=== PATIENT | female | born 1950 | race African-American/Black ===

== ENCOUNTER 2017-02-13 08:09 | Day surgery (SDC) | payer OTHER ==
[2017-02-13 08:54] VITALS: BMI 31.7
[2017-02-13] MEDS ORDERED: GABAPENTIN 300 MG CAPSULE (FP) ONE (09:52)
[2017-02-13] MEDS ORDERED: oxyCODONE HCL 10 MG SUSTAINED ACTING TABLET ONE (09:52)
[2017-02-13] MEDS ORDERED: oxyCODONE HCL 10 MG SUSTAINED ACTING TABLET PO ONE (09:56)
[2017-02-13] MEDS ORDERED: LIDOCAINE 1%/EPI 1:100000 (20 ML MULTI DOSE VIAL) ONE (10:11)
[2017-02-13] MEDS ORDERED: BUPIVACAINE HCL/PF 2.5 MG/ML - 30 ML VIAL IJ ONE (10:11)
[2017-02-13] MEDS ORDERED: THROMBIN (BOVINE) 5,000 UNIT VIAL TP ONE ×2 (10:11→12:33)
[2017-02-13] MEDS ORDERED: methylPREDNISolone ACET (DEPO) 40 MG/1 ML VIAL ONE (10:11)
[2017-02-13] MEDS ORDERED: CEFAZOLIN 2 GM/D5W 50 ML IVPB ONE (10:17)
--- NOTE | 2017-02-13 10:23 | HP ---
History & Physical Update - History History: No Change - Physical Physical: No Change - Assessment Assessment: No Change - Plan Plan: No Change (C/o low back pain radiating down her left leg all the way to her ankle. Occassionally it happens to her right leg but only to her knee. This is my first time meeting the patient. I introduced myself and informed her that I will be assissting Dr. Lozano today. She is fine with it.)
[2017-02-13] MEDS ORDERED: MIDAZOLAM HCL 2 MG/2 ML SINGLE DOSE VIAL ONE ×2 (10:46)
[2017-02-13] MEDS ORDERED: BUPIVACAINE HCL/PF 0.5% (5MG/ML) 10 ML VIAL ONE (10:48)
[2017-02-13] MEDS ORDERED: LIDOCAINE 1%/EPI 1:100000 (50 ML MULTI DOSE VIAL) INF ONE (11:15)
[2017-02-13] MEDS ORDERED: ceFAZolin SODIUM 1 GM VIAL ONE (11:28)
[2017-02-13] MEDS ORDERED: ONDANSETRON 4 MG/2 ML VIAL ONE (12:15)
[2017-02-13] MEDS ORDERED: DEXAMETHASONE SOD PHOSPHATE 4 MG/1 ML VIAL ONE (12:16)
[2017-02-13] MEDS ORDERED: methylPREDNISolone ACET (DEPO) 40 MG/1 ML VIAL IM ONE (12:33)
[2017-02-13] MEDS ORDERED: BUPIVACAINE HCL/PF 0.25% (2.5MG/ML) 10 ML VIAL IJ ONE (12:34)
--- NOTE | 2017-02-13 13:01 | OP ---
Operative Note - Note: Operative Date: 02/13/17 Pre-Operative Diagnosis: spinal stenosis with lumbar radiculopathy Operation: Laminectomy L4-S1 Post-Operative Diagnosis: Same as Pre-op Surgeon: Hardy Lozano School Bus Mechanic: Juan Hodge Anesthesiologist/COMMUNICATION TECHNICIAN: Luis Antonio Luna Anesthesia: Spinal Specimens Removed: None. Estimated Blood Loss (mls): 20 Fluid Volume Replaced (mls): 900 Operative Report Dictated: Yes
--- NOTE | 2017-02-13 13:03 | SURG ---
Surgery Pig Breeder Note Pig Breeder: Juan Hodge PA-C Date of Service: 02/13/17 Diagnosis: Spinal stenosis with lumbar radiculopathy Procedure: L4-S1 Laminectomy I was present for the entirety of the operative procedure. For further detail, please refer to operative report. Visit type - Case Type Case Type: Scheduled Admission - New patient This patient is new to me today: Yes Date on this admission: 02/13/17
[2017-02-13] MEDS ORDERED: ACETAMINOPHEN 1000 MG/100 ML VIAL (NON FORMULARY) IVPB ONE ×2 (13:04→13:05)
[2017-02-13] MEDS ORDERED: traMADol HCL 50 MG TABLET PO ONE ×2 (13:04→14:20)
[2017-02-13] MEDS ORDERED: traMADol HCL 50 MG TABLET ONE (13:37)
[2017-02-13] MEDS ORDERED: ONDANSETRON 4 MG/2 ML VIAL IVPUSH PRN (13:43)
[2017-02-13] MEDS ORDERED: oxyCODONE HCL 5 MG TABLET PO PRN (13:43)
[2017-02-13] MEDS ORDERED: PROMETHAZINE HCL 25 MG/1 ML VIAL IVPUSH PRN (13:43)
[2017-02-13] MEDS ORDERED: LACTATED RINGERS SOLUTION 1,000 ML IV SCH (13:45)
[2017-02-13] MEDS ORDERED: GABAPENTIN 300 MG CAPSULE (FP) PO ONE (14:02)
--- NOTE | 2017-02-13 14:02 | OP ---
DATE OF OPERATION: 02/13/2017 PREOPERATIVE DIAGNOSIS: Spinal stenosis, L4-L5, L5-S1. POSTOPERATIVE DIAGNOSIS: Spinal stenosis, L4-L5, L5-S1. PROCEDURE PERFORMED: Laminectomy at L4-L5, L5-S1. SURGEON: Hardy Lozano MD MARINE MACHINIST: SB Michelle ESTIMATED BLOOD LOSS: 50 mL INTRAVENOUS FLUIDS: Per Anesthesia. COMPLICATIONS: There were none. ANESTHESIA: Spinal. DISPOSITION: Patient brought to the PACU in stable condition. INDICATION FOR SURGERY: The patient is a 66-year-old female who has been suffering from pain from her back down her legs. X-rays and MRI were completed, which showed that she had spinal stenosis at L4-L5 and L5-S1. She had gone through an exhaustive course of treatment for this which included medications, physical therapy, as well as injections. Unfortunately, her pain continued to persist despite all this. At this point, risks, benefits, and alternatives were discussed, and the patient consented to surgery. DESCRIPTION OF PROCEDURE: The patient was brought to the operating room by the anesthesia staff. After appropriate patient identification was performed, spinal anesthesia was given. She was able to position herself prone onto the Fish frame with all areas of bony prominences well padded at this time. Two needles were placed into her back to greer off the L4 to S1 segments, and x-ray was taken to confirm that this was correct. The needles were removed, and 10 mL of lidocaine with epinephrine were injected into her back at this time. Her back was prepped and draped in a sterile manner. At this point, a timeout was completed, and an incision was made from the top of L4 down to the bottom of S1. Dissection was carried down to the fascia. Fascia was split open at this time, and appropriate retractors were then placed in. A spinal needle was placed onto the L4 lamina to greer off the L4-L5 level. An x-ray was taken to confirm this as correct. At this point, the needle was removed. The interspinous ligament at L4-L5 and L5-S1 removed. The spinous process at L5 was removed. A bur was used to remove the lamina of L5. A complete decompression was performed such that by the end of the procedure, the L5 and S1 nerve roots appeared to be well decompressed. All bleeding was well controlled at this time. Steroid was placed over the nerve root. Gelfoam was placed over that. The fascia was closed with a No. 1 Vicryl suture. The subcutaneous tissues were closed with 2-0 Vicryl suture. Skin was closed with 3-0 Monocryl suture. Dermabond was applied. Steri-Strips were applied. A sterile dressing was applied. Patient was placed supine on the OR bed and brought to the PACU in stable condition. Marianela BATEMAN/[id number]
[2017-02-13 14:55] VITALS: TEMP 97.7
[2017-02-13 18:35] VITALS: BP 118/69; PULSE 69
== END 2017-02-13 17:40 | disposition home or self-care (01) ==
LOC: FASU 08:09
PROVIDERS: ATTEND Orthopaedic Surgery Orthopaedic Surgery of the Spine
PROC: 01NB0ZZ Release Lumbar Nerve, Open Approach (ICD-10-PCS; principal; 2017-02-13 11:39)
DX: M48.06 Spinal stenosis, lumbar region (principal); M48.07 Spinal stenosis, lumbosacral region
CPT/HCPCS: 72100-TC; 94760